=== PATIENT | male | born 1980 | race Caucasian/White ===

== ENCOUNTER 2019-03-28 15:49 | Emergency (ER) | payer OTHER ==
[~2019-03-28] VITALS: Ht 170.2 cm; Wt 76.0 kg
--- NOTE | 2019-03-28 16:14 | NUR ---
Spoke with BRENDAN Elias regarding patient experiencing a "shooting" groin pain upon ambulating to room. PA to enter orders.
[2019-03-28] MEDS ORDERED: IBUP-1985 PO (16:53)
[2019-03-28] MEDS ORDERED: METH-360 PO (16:53)
[2019-03-28] MEDS ORDERED: ketorolac tromethamine 15mg/ml inj. IM ONE (16:55)
[2019-03-28] MEDS ORDERED: orphenadrine citrate 60mg/2ml inj. IM ONE (16:55)
[2019-03-28 17:57] VITALS: BP 108/73
== END 2019-03-28 17:54 | disposition home or self-care (01) ==
LOC: ER 15:50
DX: M25.551 Pain in right hip (principal); M54.5 Low back pain; Z79.899 Other long term (current) drug therapy; W13.2XXA Fall from, out of or through roof, initial encounter; Y93.89 Activity, other specified; Y92.89 Other specified places as the place of occurrence of the external cause; Y99.8 Other external cause status
CPT/HCPCS: 73502; 96372; 99284; J1885; J2360

== ENCOUNTER 2022-03-26 01:09 | Emergency (ER) | payer OTHER ==
[~2022-03-26] VITALS: Ht 170.2 cm; Wt 78.7 kg
[~2022-03-26 01:09] MED LIST: IBUP-1985 PO; METH-360 PO
[2022-03-26 01:16] VITALS: BP 115/83
== END 2022-03-26 04:05 | disposition left against medical advice (07) ==
LOC: ER 01:10
DX: L29.9 Pruritus, unspecified (principal); Z53.21 Procedure and treatment not carried out due to patient leaving prior to being seen by health care provider